=== PATIENT | female | born 1975 | race Caucasian/White ===

== ENCOUNTER 2016-10-25 07:19 | Day surgery (SDC) | payer OTHER ==
[2016-10-23 09:18] LABS: BASOPHILS 0.5 %; BASOPHILS ABSOLUTE 0.04 10/3/uL (0.0-0.16); EOSINOPHILS 1.9 %; EOSINOPHILS ABSOLUTE 0.16 10/3/uL (0.0-0.53); HEMATOCRIT 40.3 % (36.0-48.0); HEMOGLOBIN 13.8 g/dL (12.0-16.0); IMMATURE GRANULOCYTES 0.4 %; IMMATURE GRANULOCYTES ABSOLUTE 0.03 10/3/uL (0.0-0.11); LYMPHOCYTES ABSOLUTE 2.27 10/3/uL (0.67-4.30); MEAN CORPUS HGB CONC 34.2 g/dL (32.0-36.0); MEAN CORPUSCULAR HEMOGLOB 30.3 pg (26.0-34.0); MEAN CORPUSCULAR VOLUME 88.6 fL (80-100); MONOCYTES 7.1 %; NEUTROPHILS 63.1 %; NEUTROPHILS ABSOLUTE 5.32 10/3/uL (2.02-8.40); PLATELET COUNT 270 10/3/uL (150-400); RBC DISTRIBUTION WIDTH 12.8 % (12.0-16.0); RED CELL COUNT 4.55 10/6/uL (4.0-5.6); WHITE BLOOD CELLS 8.4 10/3/uL (4.5-10.5)
[2016-10-23 09:21] LABS: MANUAL DIFF NO %
[2016-10-23 09:29] LABS: BUN (BLOOD UREA NITROGEN) 12 MG/DL (6-23); CALCIUM, SERUM 8.9 MG/DL (8.5-10.4); CHLORIDE, SERUM 101 MMOL/L (96-112); CO2 (CARBON DIOXIDE) 29 MMOL/L (24-34); CREATININE 0.66 MG/DL (0.55-1.02); GFR AFRICAN AMERICAN 125 ML/MIN (>=60); GFR NON AFRICAN AMERICAN 108 ML/MIN (>=60); GLUCOSE, SERUM 90 MG/DL (60-99); SODIUM, SERUM 138 MMOL/L (135-148)
--- NOTE | ~2016-10-25 | OP ---
Record Of Operation [facility] [address] [place]. [address] NAME: LATONIA DUNN : 71 STATUS : [facility]#: [id number] AGE: 41 ADM/REG DATE : 10/25/16 MR#: [id number] REPORT SERV DATE: 10/25/16 DICTATED BY: DE DODGE DATE: 10/25/16 REPORT STATUS : Draft TRANSCRIBED BY: MODL DATE: 10/25/16 DATE OF PROCEDURE: 10/25/2016 PREOPERATIVE DIAGNOSIS: Epilepsy. POSTOPERATIVE DIAGNOSIS: Epilepsy. OPERATION: VNS generator implant and programming. SUMMARY: After adequate general anesthesia, prep and drape, an incision made transversely in the neck just medial to the sternocleidomastoid. Carried down through the skin and subcutaneous tissue and through the platysma. The sternocleidomastoid was retracted laterally and the carotid sheath was entered and the vagus nerve was dissected carefully from the carotid and the internal jugular vein. Approximately 3-4 cm segment of vagus nerve was freed up. A vessel loop was placed about this. The incision was then made in the left anterior chest, carried down through the skin and subcutaneous tissue, and down to the chest wall. A pocket was made with the aid of the cautery unit. Good hemostasis was obtained using cautery unit. The tunnel was then placed from the superior incision to the inferior incision and the lead was then brought through the tunneler. The 3 leads were then connected to the vagus nerve carefully under direct vision and appeared to be in good position. A small loop was made inferior to this and sutured in place with a small bolster. Second loop was made on top of the sternocleidomastoid and this was sutured in place with another bolster. This generator lead was then connected to the generator and this was interrogated successfully to 1 milliamp and impedance was okay. This was then placed in the pocket and again interrogated successfully to 1 milliamp and impedance was okay. This was then turned to 0. After adequate irrigation, good hemostasis was obtained. The generator was sutured to the anterior chest wall with 3-0 Prolene suture. Subcutaneous tissue, skin closed in routine fashion after injection of 0.5% Marcaine without. The patient tolerated the procedure well, and taken to recovery room in satisfactory condition. CA/ASHUL De Dodge M.D. / [id number] CC: Pia Seymour M.D.
[~2016-10-25 07:19] MED LIST: APTIOM PO; DEPAKOT250 PO; IBU-200200 MG PO; KEPPRA750 MG PO; MAXALT10 MG PO; ZESTORETIC PO
== END 2016-10-25 13:37 | disposition home or self-care (01) ==
LOC: SDC 07:19
PROVIDERS: Specialist
PROC: 00HE0MZ Insertion of Neurostimulator Lead into Cranial Nerve, Open Approach (ICD-10-PCS; 2016-10-25)
PROC: 0JH60BZ Insertion of Single Array Stimulator Generator into Chest Subcutaneous Tissue and Fascia, Open Approach (ICD-10-PCS; principal; 2016-10-25 08:45)
DX: G40.909 Epilepsy, unspecified, not intractable, without status epilepticus (principal); I10 Essential (primary) hypertension; G43.909 Migraine, unspecified, not intractable, without status migrainosus; F17.210 Nicotine dependence, cigarettes, uncomplicated; E66.9 Obesity, unspecified; Z68.43 Body mass index [BMI] 50.0-59.9, adult; Z90.89 Acquired absence of other organs; Z98.51 Tubal ligation status; Z98.890 Other specified postprocedural states; Z79.899 Other long term (current) drug therapy
CPT/HCPCS: 80048; 84703; 85025; 93005; C1767; C1778; J0690; J1170; J2250; J2370; J2405; J2710; J3010